=== PATIENT | female | born 1990 | race Caucasian/White ===

== ENCOUNTER → 2023-03-08 | Outpatient (CLI) | payer MEDICAID ==
[~2023-03-08] MED LIST: 0.9126SP NS; CALC500T7 PO; CETI10CA5 PO; GADOTERATE MEGLUMINE 10 MMOL/20 ML VIAL IV ONE; PREN1TAB80 PO
== END | disposition home or self-care (01) ==
LOC: RAH 08:30
PROVIDERS: ATTEND Family Medicine
DX: M50.222 Other cervical disc displacement at C5-C6 level (principal); M79.2 Neuralgia and neuritis, unspecified
CPT/HCPCS: 70543; A9575